=== PATIENT | male | born 1955 | race Caucasian/White ===

== ENCOUNTER 2017-12-31 12:05 | Inpatient (IN) | payer MEDICAID ==
[2017-12-31 20:16] VITALS: BMI 19.1
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
[2018-01-01] MEDS: GlipiZIDE 10 mg SR Tab PO SCH (08:39)
[2018-01-01] MEDS: Metoprolol Succinate 50 mg XL Tab PO SCH (08:40)
[2018-01-01] MEDS: Insulin Regular 100 units/ml SC SCH ×4 (08:42→21:07)
--- NOTE | 2018-01-01 10:21 | CP.PCM.CON ---
History of Present Illness - History of Present Illness History of Present Illness: Ryan is a pleasant 62 yo male with pmhx of paranoid schizophrenia, dm, and htn presented with disoriented state. He reports being sent via ambulance due to being disoriented. He reports being at [facility] and unsure how he arrive to [facility]. He is alert to self, [facility], date and the current president. He seems to be preoccupied with the fact that he picked up a random lady, treated her to dinner but states she ordered alcohol, which he asked her not to. He dines PONCE/CP/SOB/N/V. He reports enjoying his stay at the hospital but would rather be home. He reports visual hallucinations: seeing benito' daughter but in a different body , yesterday; He also reports auditory hallucinations. he denies SI/HI. PCP: Dr. Rodriguez (?) psychiatry PMHX: paranoid schizophrenia, dm, and htn famhx; Father and sister with DM PSURG: denies SOC: Reports smoking cigars, Alcohol: approximately two bottles of yeungling biweekly, Denies illicit drugs MEDS: Reports taking risperdal and metformin 500 BID. ALLERGIES: pcn, fish, and eggs. Review of Systems - Constitutional Constitutional: As Per HPI Past Patient History - Past Medical History & Family History Pertinent Family History: dm - Past Social History Cigar Use: Yes Alcohol: Occasional Drugs: Denies - CARDIAC Hx Hypertension: Yes - ENDOCRINE/METABOLIC Hx Diabetes Mellitus Type 2: Yes - MUSCULOSKELETAL/RHEUMATOLOGICAL Hx Falls: No - PSYCHIATRIC Hx Hallucinations: Yes Hx Paranoia: Yes Hx Schizophrenia: Yes Hx Substance Use: No Meds Allergies/Adverse Reactions: Allergies Allergy/AdvReac Type Severity Reaction Status Date / Time Fish Containing Products Allergy Mild SWELLING Verified 12/31/17 19:27 Penicillins Allergy Mild swlling Verified 12/31/17 19:26 egg Allergy SWELLING Verified 01/01/18 13:44 - Medications Medications: Current Medications Aspirin (Ecotrin) 81 mg PO DAILY [facility] Last Admin: 01/01/18 08:40 Dose: 81 mg Atorvastatin Calcium (Lipitor) 40 mg PO [facility] Glipizide (Glucotrol Xl) 10 mg PO DAILY [facility] Last Admin: 01/01/18 08:39 Dose: 10 mg Insulin Human Regular (Humulin R) 0 units SC [facility] PRN Reason: Protocol Last Admin: 01/01/18 08:42 Dose: Not Given Lorazepam (Ativan) 0.5 mg PO Q6H PRN PRN Reason: Anxiety Metoprolol Succinate (Toprol Xl) 50 mg PO DAILY [facility] Last Admin: 01/01/18 08:40 Dose: 50 mg Physical Exam - Eye Exam Eye Exam: EOMI - ENT Exam ENT Exam: Mucous Membranes Moist - Respiratory Exam Respiratory Exam: Clear to Auscultation Bilateral, NORMAL BREATHING PATTERN. absent: Wheezes - Cardiovascular Exam Cardiovascular Exam: REGULAR RHYTHM, +S1, +S2 - GI/Abdominal Exam GI & Abdominal Exam: Normal Bowel Sounds, Soft. absent: Tenderness - Extremities Exam Extremities exam: Positive for: full ROM - Neurological Exam Neurological exam: Alert, CN II-XII Intact, Normal Gait, Oriented x3 - Psychiatric Exam Psychiatric exam: Normal Affect, Normal Mood Results - Vital Signs Recent Vital Signs: Last Vital Signs Temp Pulse 77 01/01/18 08:40 Resp BP 125/76 01/01/18 08:40 Pulse Ox - Labs Result Diagrams: 01/01/18 10:20 01/01/18 10:20 Labs: Laboratory Results - last 24 hr 01/01/18 05:55 POC Glucose (mg/dL) 127 H Assessment & Plan - Assessment and Plan (Free Text) Assessment: 62 yo M pmhx of paranoid schizophrenia, dm, htn presents to the clinic for stabilization of his mental health. 1) Paranoid schizophrenia -Managed by Dr. Pena -Continue to monitor for behavioral stability, vitals -Rx: Risperidone 0.5 mg PO BID; Lorazepam 0.5 mg PO q6h 2) Diabetes -Rx: Glipizide 10 mg PO qDaily and SSI: Humulinl; -atorvastatin 40 mg po hs; ASA 81 mg -fingerstick glucose -pending HBA1C 3) HTN: controlled -Rx: metoprolol 50 mg PO QDAILY -monitor vitals 4) DVT prophylaxis -pt ambulating
[2018-01-01 11:03] LABS: HEMOGLOBIN 14.3 g/dL (12.0-18.0); MEAN CELL VOLUME 88.1 fl (80.0-94.0); MEAN CORPUSCULAR HEMOGLOBIN 29.1 pg (27.0-31.0); MEAN CORPUSCULAR HGB CONC 33.1 g/dL (33.0-37.0); RBC 4.92 Mil/uL (4.40-5.90); WHITE BLOOD COUNT 7.9 K/uL (4.8-10.8)
[2018-01-01 11:14] LABS: ALT/SGPT 17 U/L (21-72); AST/SGOT 23 U/L (17-59); BLOOD UREA NITROGEN 14 mg/dl (9-20); CALCIUM 9.5 mg/dL (8.4-10.2); GFR AFRICAN-AMERICAN > 60; GFR NON-AFRICAN AMERICAN > 60; HDL CHOLESTEROL 31 MG/DL (30-70)
[2018-01-01] MEDS ORDERED: Magnesium Hydroxide Susp 30 ml UD PO PRN (11:17)
[2018-01-01] MEDS ORDERED: Alum-Mag Hydrox-Simethicone Susp (30 mL) PO PRN (11:17)
[2018-01-01] MEDS ORDERED: Bismuth Subsalicylate 262 mg/15 ml Sus (240 ml) PO PRN (11:17)
[2018-01-01 11:25] LABS: LDL CHOLESTEROL 136 mg/dL (0-129)
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
[2018-01-02] MEDS: GlipiZIDE 10 mg SR Tab PO SCH (08:42)
[2018-01-02] MEDS: Insulin Regular 100 units/ml SC SCH ×4 (08:43→21:15)
[2018-01-02] MEDS: Metoprolol Succinate 50 mg XL Tab PO SCH (08:46)
[2018-01-03] MEDS: GlipiZIDE 10 mg SR Tab PO SCH (08:20)
[2018-01-03] MEDS: Insulin Regular 100 units/ml SC SCH ×4 (08:21→21:03)
[2018-01-03] MEDS: Metoprolol Succinate 50 mg XL Tab PO SCH (08:24)
--- NOTE | 2018-01-03 16:23 | PCM.PYCHPN ---
Psychiatric Progress Note - Psychiatric Progress Note Patient seen today, length of contact: late note for [id number] chart reviewed case discussed with team Patient Chief Complaint: was seeing a man and a woman coming together i had a problem my girlfriend through me out Problems Identified/Issues Discussed: alteration in cognition Medical Problems: per chart Diagnostic Results: per psychiatry per medicine per nursing per social worker health services DSM 5 Symptoms Update: mood and cogntive appears stabilizing Medication Change: Yes (pt was started on lexapro 5mg po day ) Medical Record Reviewed: Yes Consults ordered or reviewed: pt being followed by hospitalist Mental Status Examination - Cognitive Function Orientation: Person, Place, Situation Attention: WNL Concentration: WNL Association: [facility] Fund of Knowledge: [facility] Decription of patient's judgement and insights: impaired - Mood Mood: Depressed - Affect Affect: Constricted - Speech Speech: Appropriate - Formal Thought Process Formal Thought Process: Paranoia - Suicidal Ideation Suicidal Ideation: No - Homicidal Ideation Homicidal Ideation: No Goal/Treatment Plan - Goal/Treatment Plan Progress Toward Problem(s) and Goals/Treatment Plan: inpt adm per attending vital signs per protocol and per clinical status prns per unit protocol start pt on lexapro 5mg po day hospitalist consult nutrition consult falls precautions discharge planning in progress Estimated Date of D/C: 01/06/18 - Smoking Cessation Smoking Cessation Initiated: No Reason for not providing: pt defers
--- NOTE | 2018-01-03 16:29 | PCM.PYCHPN ---
Psychiatric Progress Note - Psychiatric Progress Note Patient seen today, length of contact: chart reviewed case discussed with team Patient Chief Complaint: reports feeling calmer watching tv, denies side effects escitalopram, nurses report pt has been adherent with treatment Problems Identified/Issues Discussed: alteration in cognition alteration in mood Medical Problems: per chart Diagnostic Results: per psychiatry per medicine per nursing per addiction social worker DSM 5 Symptoms Update: improving cogntive status and mood Medication Change: No Medical Record Reviewed: Yes Consults ordered or reviewed: pt being followed by hospitalist Mental Status Examination - Cognitive Function Orientation: Person, Place, Situation Attention: WNL Concentration: WNL Association: [facility] Fund of Knowledge: [facility] Decription of patient's judgement and insights: impaired - Mood Mood: Depressed Additional comments: improving somewhat - Affect Affect: Constricted - Speech Speech: Appropriate - Formal Thought Process Formal Thought Process: Paranoia Psychotic Thoughts and Behaviors: somewhat less - Suicidal Ideation Suicidal Ideation: No - Homicidal Ideation Homicidal Ideation: No Goal/Treatment Plan - Goal/Treatment Plan Progress Toward Problem(s) and Goals/Treatment Plan: inpt adm per attending vital signs per protocol and per clinical status falls precautions team to consider increasing lexapro per clinical status discharge planning in progress Estimated Date of D/C: 01/06/18 - Smoking Cessation Smoking Cessation Initiated: No Reason for not providing: pt defers
[2018-01-04] MEDS: GlipiZIDE 5 mg SR Tab PO SCH (08:49)
[2018-01-04] MEDS: Metoprolol Succinate 50 mg XL Tab PO SCH (08:49)
[2018-01-04] MEDS: Insulin Regular 100 units/ml SC SCH ×3 (08:50→16:02)
--- NOTE | 2018-01-04 11:28 | PCM.PYCHPN ---
Psychiatric Progress Note - Psychiatric Progress Note Patient seen today, length of contact: Patient evaluated, case discussed with team, chart reviewed Patient Chief Complaint: "I'm depressed." Problems Identified/Issues Discussed: Patient reports that he continues to feel depressed. He was guarded on interview and did not want to discuss why he has a court date set for tomorrow, nor did he want to discuss his financial affairs. He denied current AH/VH, but does acknowledge that he has had them in the past. He was agreeable to increasing the Lexapro, but did not want to increase the Risperdal at this time as he is not having active AH/VH. No SI/HI. Medication Change: Yes (Increase Lexapro to 10 mg PO Daily) Medical Record Reviewed: Yes Consults ordered or reviewed: Medicine consult Mental Status Examination - Cognitive Function Orientation: Person, Place, Situation Memory: Intact Attention: WNL Concentration: WNL Association: [facility] Fund of Knowledge: [facility] Decription of patient's judgement and insights: Fair I/J - Mood Mood: Depressed - Affect Affect: Constricted - Speech Speech: Appropriate - Formal Thought Process Formal Thought Process: Paranoia Psychotic Thoughts and Behaviors: +Paranoia - Suicidal Ideation Suicidal Ideation: No - Homicidal Ideation Homicidal Ideation: No Goal/Treatment Plan - Goal/Treatment Plan Need for Continued Stay: Remain at risks for inpatient hospitalization, Severe depression anxiety, Discharge may exacerbated symptoms Progress Toward Problem(s) and Goals/Treatment Plan: Schizophrenia, paranoid type; Depressive Disorder -Individual and group therapy -Increase Lexapro to 10 mg PO Daily -Continue Risperdal 0.5 mg Q12 hr; will increase as clinically indicated -Medicine consult -Disposition planning Estimated Date of D/C: 01/08/18 - Smoking Cessation Smoking Cessation Initiated: Yes
[2018-01-05] MEDS: Insulin Regular 100 units/ml SC SCH ×4 (08:18→21:17)
[2018-01-05] MEDS: GlipiZIDE 5 mg SR Tab PO SCH (08:18)
[2018-01-05] MEDS: Metoprolol Succinate 50 mg XL Tab PO SCH (08:20)
--- NOTE | 2018-01-05 11:12 | PCM.PYCHPN ---
Psychiatric Progress Note - Psychiatric Progress Note Patient seen today, length of contact: Patient evaluated, case discussed with team, chart reviewed Patient Chief Complaint: "I'm depressed." Problems Identified/Issues Discussed: Patient reports that his mood is improving. He continues to be guarded about information which may be secondary to paranoia. We discussed changing the dosing of Risperdal to once a day. He denies current side effects to medications. No current AH/VH/SI/HI. He is more goal oriented and has brighter range of affect. Medication Change: Yes (Risperdal 1 mg PO HS) Medical Record Reviewed: Yes Consults ordered or reviewed: Medicine consult Mental Status Examination - Cognitive Function Orientation: Person, Place, Situation Memory: Intact Attention: WNL Concentration: WNL Association: [facility] Fund of Knowledge: [facility] Decription of patient's judgement and insights: Fair I/J - Mood Mood: Depressed - Affect Affect: Constricted - Speech Speech: Appropriate - Formal Thought Process Formal Thought Process: Paranoia Psychotic Thoughts and Behaviors: +Paranoia - Suicidal Ideation Suicidal Ideation: No - Homicidal Ideation Homicidal Ideation: No Goal/Treatment Plan - Goal/Treatment Plan Need for Continued Stay: Remain at risks for inpatient hospitalization, Severe depression anxiety, Discharge may exacerbated symptoms Progress Toward Problem(s) and Goals/Treatment Plan: Schizophrenia, paranoid type; Depressive Disorder -Individual and group therapy -Continue Lexapro 10 mg PO Daily -Change Risperdal to 1 mg PO HS; patient does not want to increase the dose at this time -Medicine consult -Disposition planning Estimated Date of D/C: 01/07/18
[2018-01-06] MEDS: Metoprolol Succinate 50 mg XL Tab PO SCH (08:45)
[2018-01-06] MEDS: Insulin Regular 100 units/ml SC SCH ×5 (08:46→21:03)
[2018-01-06] MEDS: GlipiZIDE 5 mg SR Tab PO SCH (09:00)
--- NOTE | 2018-01-06 13:39 | PCM.PYCHPN ---
Psychiatric Progress Note - Psychiatric Progress Note Patient seen today, length of contact: Patient evaluated, case discussed with team, chart reviewed Patient Chief Complaint: "I'm okay." Problems Identified/Issues Discussed: Patient reports that his mood is improving. He is less guarded and denies acute AH/VH/paranoia/delusions. he denies adverse effects to medications. We discussed likely discharge tomorrow if the patient continues to improve clinically. NO SI/HI. He is more goal oriented and has brighter range of affect. Medication Change: No Medical Record Reviewed: Yes Consults ordered or reviewed: Medicine consult Mental Status Examination - Cognitive Function Orientation: Person, Place, Situation, Time Memory: Intact Attention: WNL Concentration: WNL Association: WNL Fund of Knowledge: [facility] Decription of patient's judgement and insights: Fair I/J - Mood Mood: Depressed - Affect Affect: Constricted - Speech Speech: Appropriate - Formal Thought Process Formal Thought Process: Loosening of associations Psychotic Thoughts and Behaviors: +Denies acute paranoia/AH/VH - Suicidal Ideation Suicidal Ideation: No - Homicidal Ideation Homicidal Ideation: No Goal/Treatment Plan - Goal/Treatment Plan Need for Continued Stay: Discharge may exacerbated symptoms Progress Toward Problem(s) and Goals/Treatment Plan: Schizophrenia, paranoid type; Depressive Disorder -Individual and group therapy -Continue Lexapro 10 mg PO Daily -Continue Risperdal 1 mg PO HS; patient does not want to increase the dose at this time -Medicine consult -Disposition planning- likely discharge tomorrow if patient continues to improve clinically Estimated Date of D/C: 01/07/18
[2018-01-07 06:02] VITALS: BP 134/62; PULSE 75; RESP 19; TEMP 97.1
[2018-01-07] MEDS: Insulin Regular 100 units/ml SC SCH ×2 (07:51→11:59)
[2018-01-07] MEDS: GlipiZIDE 5 mg SR Tab PO SCH (08:18)
[2018-01-07] MEDS: Metoprolol Succinate 50 mg XL Tab PO SCH (08:19)
--- NOTE | 2018-01-07 10:24 | PCM.PYCHDC ---
Mental Status Examination - Mental Status Examination Orientation: Person, Place, Situation, Time Memory: Intact Mood: Neutral Affect: Broad Speech: Appropriate Attention: WNL Concentration: WNL Association: WNL Fund of Knowledge: WNL Formal Thought Process: No Impairment Description of patient's judgement and insight: Fair I/J Psychotic Thoughts and Behaviors: +Denies acute paranoia/AH/VH Suicidal Ideation: No Current Homicidal Ideation?: No Discharge Summary - Discharge Note Reason for Hospitalization: Ryan is a pleasant 62 yo male with pmhx of paranoid schizophrenia, dm, and htn presented with disoriented state. He reports being sent via ambulance due to being disoriented. He reports being at [facility] and unsure how he arrive to [facility]. He is alert to self, [facility], date and the current president. He seems to be preoccupied with the fact that he picked up a random lady, treated her to dinner but states she ordered alcohol, which he asked her not to. He dines PONCE/CP/SOB/N/V. He reports enjoying his stay at the hospital but would rather be home. He reports visual hallucinations: seeing benito' daughter but in a different body , yesterday; He also reports auditory hallucinations. he denies SI/HI. PCP: Dr. Rodriguez (?) psychiatry PMHX: paranoid schizophrenia, dm, and htn famhx; Father and sister with DM PSURG: denies SOC: Reports smoking cigars, Alcohol: approximately two bottles of yeungling biweekly, Denies illicit drugs MEDS: Reports taking risperdal and metformin 500 BID. ALLERGIES: pcn, fish, and eggs. Laboratory Data: Abnormal Lab Results 01/06/18 01/06/18 01/06/18 11:34 15:30 20:06 POC Glucose (mg/dL) 116 H 115 H 132 H 01/07/18 05:55 POC Glucose (mg/dL) 88 Consultations:: List each consultation separately and include: 1. Reason for request. 2. Findings. 3. Follow-up Consultations: Medicine consult Summary of Hospital Course include:: 1. Description of specific treatment plan utilized for patients during their course of treatmen. 2. Summarize the time- course for resolution of acute symptoms and/or regressed behaviors. 3. Describe issues identified and worked on during hospitalization. 4. Describe medication utilized. 5. Describe medical problems identified and treated. 6. Reassessment of suicide risk Summary of Hospital Course: Patient was admitted to the geriatric psychiatry unit. Individual and group therapy were provided. Patient was stabilized on Lexapro 10 mg PO Daily and Risperdal 1 mg PO HS. He no longer reports mood disturbances and denies any current psychotic symptoms. He is psychiatrically stable for discharge with outpatient follow-up. The importance of compliance with treatment and medications was discussed with the patient. - Diagnosis (1) Schizophrenia Current Visit: Yes Status: Chronic (2) Depressive disorder Current Visit: Yes Status: Chronic - Final Diagnosis (DSM 5) Condition upon Discharge: STABLE DSM 5: Schizophrenia, paranoid type; Depressive Disorder Disposition: HOME/ ROUTINE Follow-up Treatment Plan: Schizophrenia, paranoid type; Depressive Disorder -Continue Lexapro 10 mg PO Daily -Continue Risperdal 1 mg PO HS -Discharge w/ outpatient follow-up Prescriptions/Medication Reconciliation: Aspirin [Adult Low Dose Aspirin EC] 81 mg PO DAILY #30 tablet. Atorvastatin [Lipitor] 40 mg PO HS #30 tab Escitalopram [Lexapro] 10 mg PO DAILY #30 tab GlipiZIDE SR [Glucotrol XL] 5 mg PO DAILY #30 tab Metoprolol Succinate [Toprol XL] 50 mg PO DAILY #30 tab risperiDONE [RisperDAL Tab] 1 mg PO HS #30 tab - Smoking Cessation Smoking Cessation Medication prescribed: Yes Reason for not providing: Prescribed while admitted; patient refused outpatient prescription - Antipsychotic Medications Pt discharged on 2 or more routine antipsychotic medications: No
== END 2018-01-07 13:27 | disposition home or self-care (01) | DRG 430 ==
LOC: H.STEP 20:17
PROVIDERS: ADMIT Psychiatry & Neurology Psychiatry; ATTEND Psychiatry & Neurology Psychiatry
PROC: GZHZZZZ Group Psychotherapy (ICD-10-PCS; principal; 2017-12-31)
DX: F20.0 Paranoid schizophrenia (principal); E11.9 Type 2 diabetes mellitus without complications; F32.9 Major depressive disorder, single episode, unspecified; I10 Essential (primary) hypertension; Z91.012 Allergy to eggs; Z88.0 Allergy status to penicillin; Z91.013 Allergy to seafood; F17.290 Nicotine dependence, other tobacco product, uncomplicated